=== PATIENT | male | born 1950 | race African-American/Black ===

== ENCOUNTER 2017-08-26 12:07 | Inpatient (IN) ==
[2017-08-26 13:54] VITALS: BMI 25.2
[2017-08-26] MEDS ORDERED: NS FLUSH BAG 500ml IV PRN (13:59)
--- NOTE | 2017-08-26 14:13 | Family Practice History&Phys ---
History of Present Illness Chief complaint: Fever HPI: It was reported to me by our staff that he was having some fever and was very week. He had a temperature of 100.6. He reports that is abdomen hurts. He might feel slightly nauseous. He denies having a sore throat. He does feel like he's having chills. He has not recently had any diarrhea. He did recently have abdominal sonogram which showed some new ascites PFSH Hepatitis C. Not treated secondary to dementia and overall prognosis. Dementia with behaviors. History of IV drug use. Splenomegaly found on abdominal sonogram. Thrombocytopenia. Venous insufficiency. - Social History Smoking status: Former smoker Substance use type: former substance user, IV drugs Substance last used: unknown Housing: house Household members: family Current occupational status: retired Does patient use chewing tobacco?: No Medications Home Medications Medication Instructions Recorded Confirmed Type RisperiDONE [RisperDAL] 0.25 mg PO DAILY 08/26/17 08/26/17 History hydroCHLOROthiazide 25 mg PO DAILY 08/26/17 08/26/17 History [Hydrochlorothiazide] Allergies Allergy/AdvReac Type Severity Reaction Status Date / Time No Known Drug Allergies Allergy Verified 08/26/17 14:05 Exam Vital signs: Temperature 101.2 F H 08/26/17 13:50 Pulse Rate 120 H 08/26/17 13:50 Respiratory Rate 28 H 08/26/17 13:50 Blood Pressure 139/81 08/26/17 13:50 Pulse Oximetry 90 08/26/17 13:50 - Constitutional mild distress, well developed, thin Comments: Chills - Routine HEENT Exam Head: Present: normocephalic, atraumatic Eye: Present: PERRL ENT: Present: mucous membranes moist Throat: normal inspection - Routine Neck Exam Present: supple - Routine Respiratory Exam Present: CTA bilaterally Comments: Normal respiratory effort - Routine Cardiovascular Exam Present: RRR - Routine Abdominal Exam Present: distended Comments: His abdomen is firm but has some flexibility. He doesn't guard but does have pain when palpating generally all over the abdomen. - Routine Extremities Exam Present: edema Comments: pitting bilaterally just above the ankle. Results - Labs All other labs normal. Assessment and Plan - Assessment and Plan (1) Fever and chills Current visit: Yes Status: Acute I am getting the culture of the peritoneal fluid and blood cultures. Then will start on those send 3.375 mg IV Q6 hours. Use Tylenol for fever. (2) Abdominal pain Current visit: Yes Status: Acute Ordering a CT scan of the abdomen. I think the pain is related to ascites. (3) Ascites Current visit: Yes Status: Acute Cell count and cytology. (4) Hepatitis C Current visit: Yes Status: Acute Treatment was considered. Because of his advanced dementia, and his dislike for taking medications medical treatment was offered and not started. Routine sonograms have been done. He has developed ascites in the last six months. (5) Venous (peripheral) insufficiency Current visit: Yes Status: Acute Stable - not been acute symptom (6) Anemia Current visit: Yes Status: Acute Hemoglobin was checked yesterday and was 12.8 (7) Thrombocytopenia Current visit: Yes Status: Acute In April of this year is platelet count was 76,000. In June of this year it was 63,000. It was checked yesterday and was 79,000. (8) Chronic leukopenia Current visit: Yes Status: Acute Yesterday white blood cell count was 3100. In January 2017 white blood cell count was 2400. Sepsis Assessment - Evaluation SIRS Criteria: temperature > 100.9, pulse > 90 beats/minute
[2017-08-26] MEDS: ACETAMINOPHEN 500 MG TABLET PO PRN ×2 (14:18→23:49)
[2017-08-26] MEDS ORDERED: LIDOCAINE 1% (10mg/ml) 2mL INJ PF SDV ONE (14:44)
[2017-08-26] MEDS ORDERED: LIDOCAINE 1% (10mg/ml) 5ml PF SDV ONE (14:45)
[2017-08-26] MEDS ORDERED: SALINE FLUSH 10ml SYRINGE ONE (15:32)
[2017-08-26] MEDS ORDERED: IOHEXOL 300mg/ml 100ml INJECTION ONE (15:32)
[2017-08-26] MEDS: SALINE FLUSH 10ml SYRINGE IVF PRN (16:14)
[2017-08-26] MEDS: PIPERACILLIN/TAZOBACTAM 3.375 GM in NS 100 ML IV SCH ×2 (16:14→21:01)
[2017-08-26] MEDS: D5-1/2NS with KCL 20mEq 1,000 ML IV SCH (16:14)
--- NOTE | 2017-08-26 16:18 | Ultrasound Report ---
Indication:Ascites and fever Procedure:US paracentesis abd w/image PARACENTESIS: The procedure including the benefits, risks, and alternatives were explained in detail to the patient and his son. All of their questions were answered. They stated that they understood and wished to proceed. Informed consent was obtained. A preprocedural timeout was performed to confirm the correct patient and procedure. Using sterile technique, local xylocaine anesthesia, and sonographic guidance throughout, a paracentesis is done from a right lateral approach. 2400 ml of straw colored fluid was taken off without complication. Following this, the patient was taken back to his room on the medical floor. He was in stable condition. Impression: Successful paracentesis performed with 2.4 L of fluid removed and sent to lab. Addison Rider RPA/SMOOTH performed this under my personal supervision. .
--- NOTE | 2017-08-26 16:27 | CT Scan Report ---
Indication: abd pain PROCEDURE: CT abdomen pelvis w con: Encounter: Initial Comparison: None Technique: Axial CT images were performed through the abdomen and pelvis after the administration of intravenous contrast. Coronal and sagittal two-dimensional reformats. Automated Exposure Control and Iterative Reconstruction dose reducing techniques were utilized. Contrast: Omnipaque 300 100 mL Findings: Mild groundglass type airspace disease in both lower lobes could be due to atelectasis or pneumonia. The liver has a irregular external contour suggesting cirrhosis. No discrete liver mass identified. The gallbladder is mostly obscured by ascites. Small volume ascites seen in the perihepatic space. The spleen is enlarged at 16.8 cm anteroposterior dimension. The pancreas is grossly normal. The adrenal glands and kidneys are normal. There is diffuse subcutaneous edema noted. Bladder is grossly normal. Moderate free pelvic fluid. No evidence of a bowel obstruction. The right colon appears thick-walled from the ascending colon to the proximal transverse. Multiple venous collaterals are seen in the central abdomen. No free air. Bone windows show no acute findings. Impression: 1. Bowel wall thickening or edema in the right colon. This could be reactive due to passive congestion from the patient's cirrhosis and portal hypertension. An infectious or inflammatory colitis cannot be excluded. Recommend clinical and laboratory correlation. 2. Small volume ascites and anasarca. 3. Lower lobe airspace opacities could be due to atelectasis, edema or developing pneumonia. .
[2017-08-26] MEDS ORDERED: ONDANSETRON 4 MG TABLET PO PRN (17:25)
[2017-08-26] MEDS: TRAMADOL 50 MG TABLET PO PRN (17:36)
[2017-08-27] MEDS: PIPERACILLIN/TAZOBACTAM 3.375 GM in NS 100 ML IV SCH ×4 (03:35→20:36)
--- NOTE | 2017-08-27 07:49 | Family Practice Progress Note ---
Progress Note-A&P - Time Spent With Patient Total time spent is greater than 50% in coordination of care (as documented) at patient's floor/unit and/or counseling patient: (1) Fever and chills Status: Acute Assessment and plan: Improved. Culture spending. Patient on's Zosyn day 2. Because it is not clear at this time where his fever is coming from, and the cultures are pending, I think he should remain in the hospital. I will change your to inpatient. Current Visit: Yes (2) Abdominal pain Status: Acute Assessment and plan: Appears to be due to the Ascites. 2.4 liters removed yesterday. Current Visit: Yes (3) Ascites Status: Acute Current Visit: Yes (4) Hepatitis C Status: Acute Current Visit: Yes (5) Venous (peripheral) insufficiency Status: Acute Current Visit: Yes (6) Anemia Status: Acute Current Visit: Yes (7) Thrombocytopenia Status: Acute Assessment and plan: Stable Current Visit: Yes (8) Chronic leukopenia Status: Acute Current Visit: Yes (9) Sepsis Status: Acute Current Visit: Yes (10) Hyperbilirubinemia Status: Acute Current Visit: Yes Subjective - Subjective Principal diagnosis: Fever Interval history: He is feeling better today. He denies any abdominal pain. He does report that his feet hurt. He does have some swelling in his feet. He denies feeling feverish or chills. He denies nausea. His history is limited by moderate to severe dementia. Exam Vital signs: Temperature 98.3 F 08/27/17 07:16 Pulse Rate 101 H 08/27/17 07:16 Respiratory Rate 18 08/27/17 07:16 Blood Pressure 98/63 08/27/17 07:16 Pulse Oximetry 96 08/27/17 07:16 Narrative: Laboratory Results WBC 3.1 T/MM3 (4.5-11.0) L 08/27/17 05:22 RBC 3.59 M/MM3 (4.50-5.90) L 08/27/17 05:22 Hgb 11.6 GM/DL (13.5-17.5) L D 08/27/17 05:22 Hct 33.7 % (41-53) L D 08/27/17 05:22 MCV 93.9 UM3 (80-100) 08/27/17 05:22 MCH 32.3 UUG (26-34) 08/27/17 05:22 MCHC 34.4 GM/DL (31-37) 08/27/17 05:22 RDW Std Deviation 57.6 FL (36.9-50.2) H 08/27/17 05:22 Plt Count 65 T/MM3 (130-400) L 08/27/17 05:22 MPV 11.3 UM3 (9.4-12.4) 08/27/17 05:22 Neutrophils % (Manual) 77.0 % (33-66) H 08/27/17 05:22 Band Neutrophils % 6.0 % (0-6) D 08/27/17 05:22 Lymphocytes % (Manual) 10.0 % (23-45) L 08/27/17 05:22 Monocytes % (Manual) 6.0 % (0-9.0) 08/27/17 05:22 Metamyelocytes % 1.0 % (0-0) H 08/27/17 05:22 Neutrophils # (Manual) 2.4 T/MM3 (1.8-7.7) 08/27/17 05:22 Band Neutrophils # 0.2 T/MM3 08/27/17 05:22 Lymphocytes # (Manual) 0.3 T/MM3 (1-4.8) L 08/27/17 05:22 Monocytes # (Manual) 0.2 T/MM3 (0-0.8) 08/27/17 05:22 Metamyelocytes # 0.0 T/MM3 08/27/17 05:22 Poikilocytosis 1+ 08/27/17 05:22 Anisocytosis 1+ 08/27/17 05:22 RBC Morph Comment Abnormal 08/27/17 05:22 INR 1.34 (0.92-1.18) H 08/26/17 14:11 Turbidity < 20 (0-20) 08/27/17 05:22 Sodium 136 MEQ/L (134-144) 08/27/17 05:22 Potassium 3.3 MEQ/L (3.6-5) L 08/27/17 05:22 Chloride 105 MEQ/L (98-107) 08/27/17 05:22 Carbon Dioxide 24 MEQ/L (22-30) 08/27/17 05:22 Anion Gap 7 meq/L (5-15) 08/27/17 05:22 BUN 14.0 MG/DL (9-20) 08/27/17 05:22 Creatinine 0.9 mg/dL (0.8-1.5) 08/27/17 05:22 GFR Calculation 85 08/27/17 05:22 BUN/Creatinine Ratio 16 RATIO (6-26) 08/27/17 05:22 Glucose 88 MG/DL (75-110) 08/27/17 05:22 Calculated Osmolality 262 MOSM/KG (261-280) 08/27/17 05:22 Calcium 7.3 MG/DL (8.4-10.2) L D 08/27/17 05:22 Total Bilirubin 6.40 MG/DL (0.20-1.30) H 08/27/17 05:22 Icterus Index 3 (0-7) 08/27/17 05:22 AST 76 U/L (17-59) H 08/27/17 05:22 ALT 40 U/L (1-50) 08/27/17 05:22 Alkaline Phosphatase 85 U/L (38-126) D 08/27/17 05:22 Total Protein 5.4 g/dL (6.3-8.2) L 08/27/17 05:22 Albumin 2.0 g/dL (3.5-5.0) L 08/27/17 05:22 Globulin 3.4 G/DL (2.4-3.6) 08/27/17 05:22 Albumin/Globulin Ratio 0.6 RATIO (1.1-2.2) L 08/27/17 05:22 Specimen Hemolysis < 15 (0-25) 08/27/17 05:22 Fluid Type Paracetesis fluid 08/26/17 15:50 Fluid Color Yellow 08/26/17 15:50 Fluid Turbidity Cloudy 08/26/17 15:50 Fluid RBC 2000 /MM3 08/26/17 15:50 Fld Tot Nucleated Cell 3941 /MM3 08/26/17 15:50 Fluid Neutrophils % 92 % 08/26/17 15:50 Fluid Lymphocytes % 5 % 08/26/17 15:50 Fluid Eosinophils % 0 % 08/26/17 15:50 Fluid Basophils % 0 % 08/26/17 15:50 Fl Monocyt/Macrophag % 3 % 08/26/17 15:50 Fluid Other Cells % 0 % 08/26/17 15:50 Specimen Comment Lab to recollect 08/27/17 05:15 Tests Not Done Cmp 08/27/17 05:15 Reason Tests Not Done Hemolyzed specimen 08/27/17 05:15 Inpatient Medications: Generic Name Dose Route Start Last Admin Trade Name Freq PRN Reason Stop Dose Admin Acetaminophen 1,000 mg 08/26/17 13:59 08/26/17 23:49 Tylenol PO 1,000 mg Q8H PRN Administration Discomfort Piperacillin Sod/Tazobactam 100 mls @ 200 mls/hr 08/26/17 15:00 08/27/17 04: 05 Sod 3.375 gm/ Sodium Chloride IV Infused Q6H KUN Infusion Potassium Chloride/Dextrose/Sod Cl 1,000 mls @ 75 mls/hr 08/26/17 16:00 08/26 18:22 D5-1/2ns With Kcl 20meq Premix IV 75 mls/hr .[id number] KUN Infusion Ondansetron HCl 4 mg 08/26/17 17:25 08/26/17 17:36 Zofran Po PO 4 mg Q4H PRN Administration Potassium Chloride 20 meq 08/27/17 08:00 K-Dur 20 Meq Tablet PO WB KUN Sodium Chloride 500 ml 08/26/17 13:59 Normal Saline IV PRN PRN Sodium Chloride 10 - 80 ml 08/26/17 13:59 08/26/17 16:14 Iv Flush IVF 10 ml PRN PRN Administration Flushing Tramadol HCl 50 mg 08/26/17 17:24 08/26/17 17:36 Ultram PO 50 mg Q4H PRN Administration Pain - Constitutional no acute distress, well developed - Routine HEENT Exam Head: Present: normocephalic, atraumatic - Routine Neck Exam Present: supple - Routine Respiratory Exam Present: CTA bilaterally - Routine Cardiovascular Exam Present: RRR - Routine Abdominal Exam Present: soft Comments: Slight distention but much improved from yesterday. I cannot hear bowel sounds. He was not tendered all. I could not discern any organomegaly - Routine Extremities Exam Present: edema (pitting edema just above the ankle bilaterally) - Routine Skin Exam Present: intact - Routine Neurological Exam Present: alert - Routine Psychiatric Exam Present: normal affect
[2017-08-27] MEDS: D5-1/2NS with KCL 20mEq 1,000 ML IV SCH (08:45)
--- NOTE | 2017-08-27 15:52 | Ultrasound Report ---
Indication: Fever of unknown origin PROCEDURE: US liver: Encounter: Initial Comparison: CT abdomen and pelvis dated August 26, 2017 Technique: Grayscale and color Doppler sonographic imaging of the right upper quadrant of the abdomen was performed. Findings: Hepatic parenchyma is nodular and cirrhotic without evidence for focal mass. The gallbladder is thick-walled at 4 mm in diameter. Small nonshadowing gallstone versus polyp seen in the gallbladder neck. Sonographic Puckett's sign was negative. Both the intra and extrahepatic biliary system are of normal caliber with the common duct measuring 4 mm in dimension. Visualized portions of the head and body of the pancreas are unremarkable. The right kidney is present without collecting system dilatation. The right kidney measures 9.8 cm in length. Small volume ascites present. Impression: Gallbladder wall thickening which is probably reactive due to the patient's cirrhosis and ascites. No convincing sonographic evidence of acute cholecystitis. .
--- NOTE | 2017-08-27 15:57 | Ultrasound Report ---
Indication: Fever of unknown origin PROCEDURE: US abd/pelvic doppler complete: Encounter: Initial Comparison: Abdominal ultrasound performed today. Technique: Grayscale and color Doppler duplex sonographic imaging of the liver vasculature was performed. Findings: Main portal vein shows appropriate flow direction with normal flow velocity at 29.6 cm/s. Main portal vein is dilated at greater than 2 cm in diameter. Normal velocities and waveforms in the hepatic artery. Peak systolic velocity is 96.2 cm/s, end diastolic velocity of 28.1 cm/s and resistive index of 0.71. Normal flow direction and waveform seen in the left, middle and right hepatic veins with appropriate variability. Visualized portal splenic confluence is patent. Impression: No evidence of portal or splenic vein thrombosis. Dilated main portal vein suggesting portal hypertension. .
[2017-08-28] MEDS: TRAMADOL 50 MG TABLET PO PRN (02:09)
[2017-08-28] MEDS: PIPERACILLIN/TAZOBACTAM 3.375 GM in NS 100 ML IV SCH ×4 (03:00→21:55)
--- NOTE | 2017-08-28 07:06 | Family Practice Progress Note ---
Progress Note-A&P - Time Spent With Patient Total time spent is greater than 50% in coordination of care (as documented) at patient's floor/unit and/or counseling patient: (1) Fever and chills Status: Acute Assessment and plan: Improved. Culture negative so far. Gram stain on the peritoneal fluid was negative. Patient on's Zosyn day 3. Current Visit: Yes (2) Sepsis Status: Acute Current Visit: Yes (3) Ascites Status: Acute Current Visit: Yes (4) Hepatitis C Status: Acute Current Visit: Yes (5) Venous (peripheral) insufficiency Status: Acute Current Visit: Yes (6) Anemia Status: Acute Current Visit: Yes (7) Thrombocytopenia Status: Acute Assessment and plan: Stable Current Visit: Yes (8) Chronic leukopenia Status: Acute Current Visit: Yes (9) Hyperbilirubinemia Status: Acute Assessment and plan: Reviewed US. No evidence for Cholecystitis. Current Visit: Yes (10) Advanced hepatic cirrhosis Status: Acute Current Visit: Yes (11) Hypokalemia Status: Acute Assessment and plan: Adding spironolactone and dc potassium Current Visit: Yes (12) Portal hypertension Status: Acute Assessment and plan: No evidence for varices. Current Visit: Yes Subjective - Subjective Principal diagnosis: Fever Interval history: He reports that his abdominal pain is resolved. He has no pain in the feet. He denies feeling feverish or chills. Denies nausea. Exam Vital signs: Temperature 99.2 F 08/28/17 05:00 Pulse Rate 107 H 08/28/17 05:00 Respiratory Rate 18 08/28/17 05:00 Blood Pressure 133/69 08/28/17 05:00 Pulse Oximetry 89 L 08/28/17 05:00 Narrative: 08/28/17 08/28/17 08/27/17 04:38 04:37 05:22 WBC 3.6 L RBC 3.82 L Hgb 12.1 L Hct 35.4 L MCV 92.7 MCH 31.7 MCHC 34.2 RDW Std Deviation 57.5 H Plt Count 84 L MPV 11.9 Neutrophils % (Manual) 79.0 H Band Neutrophils % Lymphocytes % (Manual) 14.0 L Monocytes % (Manual) 7.0 Metamyelocytes % Neutrophils # (Manual) 2.8 Band Neutrophils # Lymphocytes # (Manual) 0.5 L Monocytes # (Manual) 0.3 Metamyelocytes # Poikilocytosis 1+ Anisocytosis 1+ Ovalocytes 1+ Helmet Cells 1+ Ina Cells 1+ RBC Morph Comment Abnormal INR Turbidity < 20 < 20 Sodium 138 136 Potassium 3.3 L 3.3 L Chloride 106 105 Carbon Dioxide 25 24 Anion Gap 7 7 BUN 15.0 14.0 Creatinine 0.9 0.9 GFR Calculation 85 85 BUN/Creatinine Ratio 17 16 Glucose 93 88 Calculated Osmolality 267 262 Calcium 7.1 L 7.3 L D Total Bilirubin 5.20 H 6.40 H Icterus Index < 2 3 AST 68 H 76 H ALT 38 40 Alkaline Phosphatase 102 85 D Total Protein 5.8 L 5.4 L Albumin 2.2 L 2.0 L Globulin 3.6 3.4 Albumin/Globulin Ratio 0.6 L 0.6 L Specimen Hemolysis < 15 < 15 Fluid Type Fluid Color Fluid Turbidity Fluid RBC Fld Tot Nucleated Cell Fluid Neutrophils % Fluid Lymphocytes % Fluid Eosinophils % Fluid Basophils % Fl Monocyt/Macrophag % Fluid Other Cells % Specimen Comment Tests Not Done Reason Tests Not Done 08/27/17 08/27/17 08/26/17 05:22 05:15 15:50 WBC 3.1 L RBC 3.59 L Hgb 11.6 L D Hct 33.7 L D MCV 93.9 MCH 32.3 MCHC 34.4 RDW Std Deviation 57.6 H Plt Count 65 L MPV 11.3 Neutrophils % (Manual) 77.0 H Band Neutrophils % 6.0 D Lymphocytes % (Manual) 10.0 L Monocytes % (Manual) 6.0 Metamyelocytes % 1.0 H Neutrophils # (Manual) 2.4 Band Neutrophils # 0.2 Lymphocytes # (Manual) 0.3 L Monocytes # (Manual) 0.2 Metamyelocytes # 0.0 Poikilocytosis 1+ Anisocytosis 1+ Ovalocytes Helmet Cells Marquise Cells RBC Morph Comment Abnormal INR Turbidity Sodium Potassium Chloride Carbon Dioxide Anion Gap BUN Creatinine GFR Calculation BUN/Creatinine Ratio Glucose Calculated Osmolality Calcium Total Bilirubin Icterus Index AST ALT Alkaline Phosphatase Total Protein Albumin Globulin Albumin/Globulin Ratio Specimen Hemolysis Fluid Type Paracetesis fluid Fluid Color Yellow Fluid Turbidity Cloudy Fluid RBC 2000 Fld Tot Nucleated Cell 3941 Fluid Neutrophils % 92 Fluid Lymphocytes % 5 Fluid Eosinophils % 0 Fluid Basophils % 0 Fl Monocyt/Macrophag % 3 Fluid Other Cells % 0 Specimen Comment Lab to recollect Tests Not Done Cmp Reason Tests Not Done Hemolyzed specimen 08/26/17 08/26/17 08/26/17 14:11 14:11 13:59 WBC 3.6 L RBC 4.53 Hgb 14.6 Hct 41.7 MCV 92.1 MCH 32.2 MCHC 35.0 RDW Std Deviation 57.4 H Plt Count 75 L MPV 10.8 Neutrophils % (Manual) 72.0 H Band Neutrophils % 16.0 H Lymphocytes % (Manual) 9.0 L Monocytes % (Manual) 3.0 Metamyelocytes % Neutrophils # (Manual) 2.6 Band Neutrophils # 0.6 Lymphocytes # (Manual) 0.3 L Monocytes # (Manual) 0.1 Metamyelocytes # Poikilocytosis 1+ Anisocytosis 1+ Ovalocytes Helmet Cells Ina Cells RBC Morph Comment Abnormal INR 1.34 H Turbidity < 20 Sodium 138 Potassium 3.2 L Chloride 104 Carbon Dioxide 22 Anion Gap 12 BUN 10.0 Creatinine 0.8 GFR Calculation 97 BUN/Creatinine Ratio 13 Glucose 94 Calculated Osmolality 265 Calcium 8.1 L Total Bilirubin 8.10 H Icterus Index 4 AST 106 H ALT 57 H Alkaline Phosphatase 135 H Total Protein 7.1 Albumin 3.1 L Globulin 4.0 H Albumin/Globulin Ratio 0.8 L Specimen Hemolysis < 15 Fluid Type Fluid Color Fluid Turbidity Fluid RBC Fld Tot Nucleated Cell Fluid Neutrophils % Fluid Lymphocytes % Fluid Eosinophils % Fluid Basophils % Fl Monocyt/Macrophag % Fluid Other Cells % Specimen Comment Tests Not Done Reason Tests Not Done Inpatient Medications: Generic Name Dose Route Start Last Admin Trade Name Freq PRN Reason Stop Dose Admin Acetaminophen 1,000 mg 08/26/17 13:59 08/26/17 23:49 Tylenol PO 1,000 mg Q8H PRN Administration Discomfort Piperacillin Sod/Tazobactam 100 mls @ 200 mls/hr 08/27/17 15:00 08/28/17 03: 30 Sod 3.375 gm/ Sodium Chloride IV Infused Q6H KUN Infusion Lorazepam 0.5 mg 08/27/17 09:36 08/28/17 02:11 Ativan Inj IVP 0.5 mg Q4H PRN Administration Ondansetron HCl 4 mg 08/26/17 17:25 08/26/17 17:36 Zofran Po PO 4 mg Q4H PRN Administration Potassium Chloride 20 meq 08/27/17 08:00 08/27/17 08:46 K-Dur 20 Meq Tablet PO 20 meq WB KUN Administration Sodium Chloride 500 ml 08/26/17 13:59 Normal Saline IV PRN PRN Sodium Chloride 10 - 80 ml 08/26/17 13:59 08/26/17 16:14 Iv Flush IVF 10 ml PRN PRN Administration Flushing Tramadol HCl 50 mg 08/26/17 17:24 08/28/17 02:09 Ultram PO 50 mg Q4H PRN Administration Pain Discontinued Medications Generic Name Dose Route Start Last Admin Trade Name Freq PRN Reason Stop Dose Admin Piperacillin Sod/Tazobactam 100 mls @ 200 mls/hr 08/26/17 15:00 08/27/17 09: 16 Sod 3.375 gm/ Sodium Chloride IV Infused Q6H KUN Infusion Potassium Chloride/Dextrose/Sod Cl 1,000 mls @ 75 mls/hr 08/26/17 16:00 08/27 09:45 D5-1/2ns With Kcl 20meq Premix IV Infused .[id number] KUN Infusion - Constitutional no acute distress, well developed - Routine HEENT Exam Head: Present: normocephalic, atraumatic - Routine Neck Exam Present: supple - Routine Respiratory Exam Present: CTA bilaterally - Routine Cardiovascular Exam Present: RRR - Routine Abdominal Exam Present: normoactive bowel sounds, non tender - Routine Extremities Exam Present: no edema
[2017-08-28] MEDS: SPIRONOLACTONE 25 MG TABLET PO SCH ×2 (09:02→17:26)
[2017-08-28] MEDS: SALINE FLUSH 10ml SYRINGE IVF PRN ×2 (09:56→15:30)
[2017-08-29] MEDS: PIPERACILLIN/TAZOBACTAM 3.375 GM in NS 100 ML IV SCH ×5 (02:50→20:45)
[2017-08-29] MEDS: SPIRONOLACTONE 25 MG TABLET PO SCH ×2 (08:42→17:28)
--- NOTE | 2017-08-29 09:26 | Family Practice Progress Note ---
Progress Note-A&P - Time Spent With Patient Total time spent is greater than 50% in coordination of care (as documented) at patient's floor/unit and/or counseling patient: (1) Fever and chills Status: Acute Assessment and plan: Improved. Culture continue to be negative. Gram stain on the peritoneal fluid was negative. Patient on's Zosyn day 4. Current Visit: Yes (2) Sepsis Status: Acute Assessment and plan: Cultures are all negative. The diagnosis of sepsis was made with clinical values. Current Visit: Yes (3) Ascites Status: Acute Assessment and plan: Seems to be increasing at this time as expected. His weight is gone up about 1 1 /2 pounds Current Visit: Yes (4) Hepatitis C Status: Acute Current Visit: Yes (5) Venous (peripheral) insufficiency Status: Acute Current Visit: Yes (6) Anemia Status: Acute Current Visit: Yes (7) Thrombocytopenia Status: Acute Assessment and plan: Stable Current Visit: Yes (8) Chronic leukopenia Status: Acute Current Visit: Yes (9) Hyperbilirubinemia Status: Acute Assessment and plan: Improved Current Visit: Yes (10) Advanced hepatic cirrhosis Status: Acute Assessment and plan: Discussed comfort care path with the family on Thursday and that is their desire. They report that is what Ronak would want based on their relationship with him. Current Visit: Yes (11) Hypokalemia Status: Acute Assessment and plan: Appears to be in the normal range now. Spironolactone helped. Current Visit: Yes (12) Portal hypertension Status: Acute Assessment and plan: No evidence for varices. Current Visit: Yes - Assessment and Plan If he remained stable, the plan is to switch to oral Cipro on Thursday and discharge back to home Subjective - Subjective Interval history: He reports he feels fine. He denies nausea chills or abdominal pain. The nurses report that he removed his midline last night. Exam Vital signs: Temperature 96.8 F 08/29/17 07:15 Pulse Rate 96 08/29/17 07:15 Respiratory Rate 16 08/29/17 07:15 Blood Pressure 110/65 08/29/17 07:15 Pulse Oximetry 93 08/29/17 07:15 Inpatient Medications: Generic Name Dose Route Start Last Admin Trade Name Freq PRN Reason Stop Dose Admin Acetaminophen 1,000 mg 08/26/17 13:59 08/26/17 23:49 Tylenol PO 1,000 mg Q8H PRN Administration Discomfort Piperacillin Sod/Tazobactam 100 mls @ 200 mls/hr 08/27/17 15:00 08/29/17 03: 20 Sod 3.375 gm/ Sodium Chloride IV Infused Q6H KUN Infusion Lorazepam 0.5 mg 08/27/17 09:36 08/28/17 02:11 Ativan Inj IVP 0.5 mg Q4H PRN Administration Ondansetron HCl 4 mg 08/26/17 17:25 08/26/17 17:36 Zofran Po PO 4 mg Q4H PRN Administration Sodium Chloride 500 ml 08/26/17 13:59 Normal Saline IV PRN PRN Sodium Chloride 10 - 80 ml 08/26/17 13:59 08/28/17 15:30 Iv Flush IVF 10 ml PRN PRN Administration Flushing Spironolactone 25 mg 08/28/17 09:00 08/29/17 08:42 Aldactone 25 Mg PO 25 mg [id number] KUN Administration Tramadol HCl 50 mg 08/26/17 17:24 08/28/17 02:09 Ultram PO 50 mg Q4H PRN Administration Pain Discontinued Medications Generic Name Dose Route Start Last Admin Trade Name Freq PRN Reason Stop Dose Admin Piperacillin Sod/Tazobactam 100 mls @ 200 mls/hr 08/26/17 15:00 08/27/17 09: 16 Sod 3.375 gm/ Sodium Chloride IV Infused Q6H KUN Infusion Potassium Chloride/Dextrose/Sod Cl 1,000 mls @ 75 mls/hr 08/26/17 16:00 08/27 09:45 D5-1/2ns With Kcl 20meq Premix IV Infused .[id number] KUN Infusion Potassium Chloride 20 meq 08/27/17 08:00 08/27/17 08:46 K-Dur 20 Meq Tablet PO 20 meq WB KUN Administration - Constitutional no acute distress, well developed - Routine HEENT Exam Head: Present: normocephalic, atraumatic - Routine Neck Exam Present: supple - Routine Respiratory Exam Present: CTA bilaterally Comments: Normal respiratory effort - Routine Cardiovascular Exam Present: RRR - Routine Abdominal Exam Present: soft, normoactive bowel sounds, distended Comments: Seems little more distended today
[2017-08-29] MEDS: SALINE FLUSH 10ml SYRINGE IVF PRN ×2 (19:50→20:02)
[2017-08-29] MEDS: ACETAMINOPHEN 500 MG TABLET PO PRN (20:08)
[2017-08-30] MEDS: PIPERACILLIN/TAZOBACTAM 3.375 GM in NS 100 ML IV SCH ×4 (03:22→21:00)
--- NOTE | 2017-08-30 09:09 | Family Practice Progress Note ---
Progress Note-A&P - Time Spent With Patient Total time spent is greater than 50% in coordination of care (as documented) at patient's floor/unit and/or counseling patient: (1) Fever and chills Status: Acute Assessment and plan: Stable. Blood and peritoneal cultures negative. Patient on's Zosyn day 5. Current Visit: Yes (2) Sepsis Status: Acute Current Visit: Yes (3) Ascites Status: Acute Current Visit: Yes (4) Hepatitis C Status: Acute Current Visit: Yes (5) Venous (peripheral) insufficiency Status: Acute Current Visit: Yes (6) Anemia Status: Acute Current Visit: Yes (7) Thrombocytopenia Status: Acute Assessment and plan: Stable Current Visit: Yes (8) Chronic leukopenia Status: Acute Current Visit: Yes (9) Hyperbilirubinemia Status: Acute Assessment and plan: Improved Current Visit: Yes (10) Advanced hepatic cirrhosis Status: Acute Current Visit: Yes (11) Hypokalemia Status: Resolved Current Visit: Yes (12) Portal hypertension Status: Acute Current Visit: Yes Subjective - Subjective Interval history: He denies pain. He reports he feels good. Exam Vital signs: Temperature 96.9 F 08/30/17 07:40 Pulse Rate 104 H 08/30/17 07:40 Respiratory Rate 18 08/30/17 07:40 Blood Pressure 133/67 08/30/17 07:40 Pulse Oximetry 92 08/30/17 07:40 Inpatient Medications: Generic Name Dose Route Start Last Admin Trade Name Freq PRN Reason Stop Dose Admin Acetaminophen 1,000 mg 08/26/17 13:59 08/26/17 23:49 Tylenol PO 1,000 mg Q8H PRN Administration Discomfort Piperacillin Sod/Tazobactam 100 mls @ 200 mls/hr 08/27/17 15:00 08/30/17 03: 55 Sod 3.375 gm/ Sodium Chloride IV Infused Q6H KUN Infusion Lorazepam 0.5 mg 08/27/17 09:36 08/29/17 19:50 Ativan Inj IVP 0.5 mg Q4H PRN Administration Ondansetron HCl 4 mg 08/26/17 17:25 08/26/17 17:36 Zofran Po PO 4 mg Q4H PRN Administration Sodium Chloride 500 ml 08/26/17 13:59 08/29/17 19:55 Normal Saline IV 500 ml PRN PRN Administration Sodium Chloride 10 - 80 ml 08/26/17 13:59 08/29/17 20:02 Iv Flush IVF 10 ml PRN PRN Administration Flushing Spironolactone 25 mg 08/28/17 09:00 08/29/17 17:28 Aldactone 25 Mg PO 25 mg [id number] KUN Administration Tramadol HCl 50 mg 08/26/17 17:24 08/28/17 02:09 Ultram PO 50 mg Q4H PRN Administration Pain Discontinued Medications Generic Name Dose Route Start Last Admin Trade Name Freq PRN Reason Stop Dose Admin Piperacillin Sod/Tazobactam 100 mls @ 200 mls/hr 08/26/17 15:00 08/27/17 09: 16 Sod 3.375 gm/ Sodium Chloride IV Infused Q6H KUN Infusion Potassium Chloride/Dextrose/Sod Cl 1,000 mls @ 75 mls/hr 08/26/17 16:00 08/27 09:45 D5-1/2ns With Kcl 20meq Premix IV Infused .[id number] KUN Infusion Potassium Chloride 20 meq 08/27/17 08:00 08/27/17 08:46 K-Dur 20 Meq Tablet PO 20 meq WB KUN Administration - Constitutional no acute distress - Routine HEENT Exam Head: Present: normocephalic, atraumatic - Routine Respiratory Exam Present: CTA bilaterally - Routine Cardiovascular Exam Present: RRR - Routine Abdominal Exam Present: distended - Routine Extremities Exam Present: edema Comments: Pitting bilaterally up to the mid tibial region
[2017-08-30] MEDS: SPIRONOLACTONE 25 MG TABLET PO SCH ×2 (09:26→16:39)
[2017-08-30] MEDS: ACETAMINOPHEN 500 MG TABLET PO PRN (10:25)
[2017-08-31] MEDS: PIPERACILLIN/TAZOBACTAM 3.375 GM in NS 100 ML IV SCH ×2 (02:48→09:16)
[2017-08-31] MEDS: SALINE FLUSH 10ml SYRINGE IVF PRN (02:49)
[2017-08-31] MEDS: ACETAMINOPHEN 500 MG TABLET PO PRN (09:17)
[2017-08-31] MEDS: SPIRONOLACTONE 25 MG TABLET PO SCH (09:17)
[2017-08-31 10:14] VITALS: BP 138/82; PULSE 111; RESP 20; TEMP 97.4
[2017-08-31 10:15] VITALS: O2SAT 92
--- NOTE | 2017-08-31 11:12 | Discharge Summary ---
Providers Date of admission: 08/27/17 07:55 Primary care physician: Giovanni Stokes MD Admitting clinician: Giovanni Stokes Attending Physician: Giovanni Stokes Consults: 08/26/17 15:23 Case Management Consult [CONS] Routine Reason For Exam: family wants info on prison placement. Attending physician on discharge: Giovanni Stokes Discharging clinician: Giovanni Stokes Anticipated date of discharge: 08/31/17 Diagnosis - Discharge Diagnosis (1) Fever and chills Status: Acute (2) Sepsis Status: Acute (3) Ascites Status: Acute (4) Hepatitis C Status: Acute (5) Venous (peripheral) insufficiency Status: Acute (6) Anemia Status: Acute (7) Thrombocytopenia Status: Acute (8) Chronic leukopenia Status: Acute (9) Hyperbilirubinemia Status: Acute (10) Advanced hepatic cirrhosis Status: Acute Problem details: I did discuss with the family that he has advanced cirrhosis and a poor overall prognosis. They are planning to move him to [place] to be closer to the family in anticipation of consult in hospice as well. (11) Hypokalemia Status: Resolved (12) Portal hypertension Status: Acute (13) Spontaneous bacterial peritonitis Status: Acute Problem details: Even though the cultures of the peritoneal fluid was negative I think this was the reason for the fever. He was placed on those in for six days approximately. Switching to oral Cipro. Summary Hospital course: He was admitted and placed on Zosyn IV. Blood cultures and peritoneal fluid was obtained. All cultures were negative. In spite of that he appears to have had spontaneous bacterial peritonitis. - Time Spent with Patient Total time spent providing and/or coordinating discharge services: Less than 30 minutes Exam Vital signs: Temperature 97.4 F 08/31/17 10:00 Pulse Rate 111 H 08/31/17 10:00 Respiratory Rate 20 08/31/17 10:00 Blood Pressure 138/82 08/31/17 10:00 Pulse Oximetry 92 08/31/17 10:14 - Constitutional no acute distress - Routine HEENT Exam Head: Present: normocephalic, atraumatic - Routine Neck Exam Present: supple - Routine Respiratory Exam Present: CTA bilaterally - Routine Cardiovascular Exam Present: RRR - Routine Abdominal Exam Present: normoactive bowel sounds, distended - Routine Extremities Exam Present: edema Comments: Pitting to the mid-tibial region. DS: Data Completed studies during hospitalization [Text]: Pending at discharge 08/26/17 15:20 Cytology, Body Fluid [PTH] Routine Labs on day of discharge: Labs from last 24 hours 08/31/17 08/30/17 07:34 13:47 WBC 3.0 L RBC 4.35 L Hgb 13.9 Hct 40.3 L MCV 92.6 MCH 32.0 MCHC 34.5 RDW Std Deviation 57.8 H Plt Count 99 L MPV 10.2 Neutrophils % (Manual) 77.0 H Band Neutrophils % 1.0 Lymphocytes % (Manual) 12.0 L Monocytes % (Manual) 6.0 Eosinophils % (Manual) 4.0 Neutrophils # (Manual) 2.3 Band Neutrophils # 0.0 Lymphocytes # (Manual) 0.4 L Monocytes # (Manual) 0.2 Eosinophils # (Manual) 0.1 Poikilocytosis 2+ Anisocytosis 1+ Target Cells 1+ Tear Drop Cells 1+ Ovalocytes 1+ Helmet Cells 1+ Marquise Cells 1+ RBC Morph Comment Abnormal Turbidity < 20 Sodium 141 Potassium 4.0 Chloride 108 H Carbon Dioxide 25 Anion Gap 8 BUN 11.0 Creatinine 0.8 GFR Calculation 97 BUN/Creatinine Ratio 14 Glucose 79 Calculated Osmolality 269 Calcium 8.0 L Total Bilirubin 3.60 H Icterus Index < 2 AST 92 H ALT 47 Alkaline Phosphatase 149 H Total Protein 6.7 Albumin 2.7 L Globulin 4.0 H Albumin/Globulin Ratio 0.7 L Specimen Hemolysis < 15 Preliminary micro results at discharge 08/26/17 15:50 Body Fluid Culture - Preliminary Peritoneal Fluid No Growth After 4 Days 08/26/17 13:59 Blood Culture - Preliminary Peripheral/Iv Start No Growth After 4 Days 08/26/17 14:06 Blood Culture - Preliminary Peripheral/Iv Start No Growth After 4 Days - Imaging and Cardiology CT scan - abdomen Additional comments: Shows cirrhotic liver US - abdomen Additional comments: Portal hypertension. No evidence of varices. DS: Plan - Discharge Medications/Orders Prescriptions: New Spironolactone [Aldactone 25 mg] 25 mg PO [id number] tab Ciprofloxacin [Cipro 500 mg] 500 mg PO BID 7 Days #14 tab Continue RisperiDONE [RisperDAL] 0.25 mg PO DAILY Discontinued hydroCHLOROthiazide [Hydrochlorothiazide] 25 mg PO DAILY - Patient/Caregiver Discharge Instructions Patient Instructions: Fever in Adults (GEN), Abdominal Pain (ED) - Follow up Plan Disposition: 01 Discharged Home, Self-Care
== END 2017-08-31 12:20 | disposition home or self-care (01) | DRG 871 ==
LOC: MED
PROVIDERS: ADMIT Family Medicine; ATTEND Family Medicine